=== PATIENT | male | born 1960 | race Asian ===

== ENCOUNTER → 2023-09-24 17:14 | Outpatient (REF) | payer OTHER, SELFPAY | LOC: MRI 3T 17:14 | PROVIDERS: ATTENDING PHYSICIAN Surgery | DX: C61 Malignant neoplasm of prostate (principal) | CPT/HCPCS: 72197; A9575 ==

== ENCOUNTER 2024-01-27 06:34 | Day surgery (SDC) | payer OTHER, SELFPAY ==
[2024-01-18 12:13] VITALS: BMI 30.1
[2024-01-27] VITALS (8 sets, daily range): BP systolic 104–123; BP diastolic 62–80; BMI 30.1
[2024-01-27] MEDS: TYLENOL 1000 MG PO (11:29)
[2024-01-27] MEDS: NORMOSOL-R/PLASMALYTE-A 1000 IV (11:30)
--- NOTE | 2024-01-27 12:28 | W.SUR.PREOP ---
Pre-Operative Surgical Note
-
I have examined this patient prior to the performance of the scheduled procedure.
The patient's condition is unchanged from the time of the current History and
Physical and the patient is able to undergo the scheduled procedure.
--- NOTE | 2024-01-27 12:28 | HP.FOC2 ---
Focused History & Physical
Chief Complaint
HPI:
Chief Complaint: Left inguinal hernia
HPI / Indication for Planned Procedure:
This is a 64-year-old male who presented to our clinic with a symptomatic left inguinal hernia and found to have right inguinal hernia on exam as well. Will plan for a robotic bilateral inguinal hernia repair with mesh.
Relevant Past Medical History: Negative
Relevant Social History: Negative
Relevant Family History: Negative
Relevant Past Surgical History: Negative
Review of Systems
Review of Pertinent Systems: All Systems Negative
Medication
See Medication form for detailed medications: Yes
Medication List (including Herbals & OTC):
amlodipine 5 mg tablet 5 mg PO DAILY 01/19/24
atorvastatin 20 mg tablet 20 mg PO HS 01/19/24
losartan 50 mg-hydrochlorothiazide 12.5 mg tablet 1 tab PO DAILY 01/19/24
tamsulosin 0.4 mg capsule 0.4 mg PO HS 01/19/24
Medications Reviewed: Yes
Allergies and Reactions
Patient has Allergies: No
Noted Allergies and Reactions:
Allergy/AdvReac Type Severity Reaction Status Date / Time
No Known Allergies Allergy Verified 01/27/24 11:14
Pertinent Physical Exam
All Other Systems: Negative
Head/Neck: Normal
Diagnosis / Assessment
This is a 64-year-old male with bilateral inguinal hernias
Plan / Procedure
Will plan for bilateral robotic inguinal hernia repair with mesh.
Anesthesia/Sedation to be done by Anesthesia Provider: Yes
--- NOTE | 2024-01-27 15:39 | W.IMMPOSTOP ---
Surgical Immed Post Op Note
-
Primary Surgeon: Bo Yu MD
Assisting Surgeon: None
Pre-op Diagnosis: Bilateral inguinal hernias
Post-op Diagnosis: Same
Procedure Performed: Robotic bilateral inguinal hernia repair with mesh
Anesthesia Type: General
Specimen / Cultures: None
Estimated Blood Loss: 11 cc
Complications: None
Operative Findings: Bilateral inguinal hernias. Bilateral indirect defects, left greater than right. Bilateral cord lipomas. Floor reinforced with large Bard 3D max mid weight mesh
--- NOTE | 2024-01-27 15:44 | OR.RPT ---
Operative Report
Operative Report
Patient Name: Savannah Chavis
: 1960
Date of Operation: 01/27/2024
Preoperative Diagnosis: Reducible Inguinal hernia, bilateral
Postoperative Diagnosis: Same
Procedure(s):
Robotic bilateral inguinal Hernia Repair with mesh, (CHRISTINE approach)
Surgeon(s):
Dr. Yu
Health Information Technologist(s):
CHRYSTAL Jerome
Anesthesia: General
Estimated Blood Loss: 11 cc
Urine Output: None
Drains/Lines/Implants: Large 3D Max Bard mid weight mesh x 2
Specimens: None
Indication for surgery: The patient has a history of groin pain and noted on exam to have bilateral inguinal Hernia(s). Following review of therapeutic options they have elected to undergo a minimally invasive repair.
Operative Findings:
Bilateral inguinal hernias. Bilateral indirect defects, left greater than right. Bilateral cord lipomas. Floor reinforced with large Bard 3D max mid weight mesh
Details of the operation:
The patient was brought to the Operating Room and placed in the supine position with the arms tucked. IV antibiotics were infused and Venodyne stockings placed. Following uneventful induction of general endotracheal anesthesia, an orogastric tube
were placed. The abdomen was prepped and draped in the usual sterile fashion. The abdomen was entered using a Veress technique which required 1 pass(es), pneumoperitoneum to 15 mmHg was obtained without difficulty. A 8mm trochar was passed through
the abdominal wall roughly 20 cm cephalad to the inguinal canal. We then confirmed that no inadvertent injury was made while passing the trocar or Veress needle. We then placed two additional 8 mm ports in the left upper and right upper quadrants.
We then docked the robot with a Prograsper in the left hand port and monopolar scissors in the right. Bilateral indirect hernias were readily visible, the left much greater than the right. Part of the sigmoid colon was attached to the peritoneum
on the left side. We then began by creating a flap at the level of the ASIS laterally working our way medially to the medial umbilical fold on the left side. Staying onto the peritoneum we were able to circumferentially dissect around the hernia
sac and and peel it off of the underlying spermatic cord and testicular vessels, taking care to preserve them. Medially we identified the midline pubis as well as Porfirio's ligament and ensured to dissect 2 cm below the pubic rim over the bladder.
After exposure of the entire myopectineal orifice we identified and reduced: A small sized indirect inguinal hernia, no direct inguinal hernia, no femoral hernia, and a medium cord lipoma which was removed. This was repeated on the right side with
similar findings though the indirect hernia was smaller as was the cord lipoma.
We then fixated two large 3D max meshes with a 2-0 Vicryl stitch at coopers medially and superior laterally. The flaps were then closed with running 2-0 barbed monocryl suture ensuring that the tail was cut flush with the medial fat pad so that no
barbs were exposed. During the closure of the flap an Angiocath was inserted and 20 cc of quarter percent Marcaine was instilled. The area in the flap cavity was then evacuated of air confirming that the meshes were flush and there were no folds.
No rents in the peritoneum were noted. All needles and instruments were then removed and the robot was undocked. The abdomen was then desufflated, and pneumoperitoneum evacuated. All skin sites were then closed with 4-0 Monocryl followed by
Dermabond. Counts were correct and overall, the patient tolerated the procedure well and was taken to the Recovery Room postoperatively in stable condition.
I was the attending physician and performed the procedure with assistance of the PA above. The assistance of Yomaira Gutiérrez was required due to the complexity of the procedure. During the procedure Yomaira assisted with passing instruments and needles as
well as closure of the wound. I was present for all portions of the case, excluding skin closure.
Bo Yu MD
== END 2024-01-27 17:33 | disposition home or self-care (01) ==
LOC: SDS 06:34
PROVIDERS: ATTENDING PHYSICIAN Surgery; FAMILY PHYSICIAN Hospitalist
DX: K40.20 Bilateral inguinal hernia, without obstruction or gangrene, not specified as recurrent (principal)
CPT/HCPCS: 49650; 36415; 93005; C1781

== ENCOUNTER → 2024-06-07 10:53 | Outpatient (REF) | payer OTHER, SELFPAY | LOC: RAD 10:53 | PROVIDERS: ATTENDING PHYSICIAN Internal Medicine | DX: M25.511 Pain in right shoulder (principal) | CPT/HCPCS: 76882 ==

== ENCOUNTER → 2024-12-06 06:47 | Outpatient (REF) | payer OTHER, SELFPAY | LOC: RAD 06:47 | PROVIDERS: ATTENDING PHYSICIAN Hospitalist | DX: K80.00 Calculus of gallbladder with acute cholecystitis without obstruction (principal); R10.11 Right upper quadrant pain | CPT/HCPCS: 76700 ==

== ENCOUNTER → 2024-12-06 09:55 | Outpatient (REF) | payer OTHER, SELFPAY | LOC: MRI 3T 09:55 | PROVIDERS: ATTENDING PHYSICIAN Surgery | DX: C61 Malignant neoplasm of prostate (principal) | CPT/HCPCS: 72197; A9575 ==

== ENCOUNTER 2025-05-09 06:21 | Day surgery (SDC) | payer OTHER, SELFPAY ==
[2025-05-04 11:54] LABS: Hematocrit 48.6 % (39.0-52.0); Hemoglobin 16.4 g/dL (13.0-18.0); Mean Corp Hgb Conc. 33.7 g/dL (33.0-37.0); Mean Corpuscular Volume 90.0 fL (80.0-94.0); Platelet Count 194 10^3/uL (130-400); Red Cell Dist. Width 13.5 % (11.5-14.5)
[2025-05-04 12:40] LABS: Blood Urea Nitrogen 24 mg/dl (9-20); Calcium 9.6 mg/dl (8.4-10.2); Carbon Dioxide 29 mmol/L (22-30); Chloride 103 mmol/L (98-107); Glucose 82 mg/dl (70-99); Potassium 4.6 mmol/L (3.5-5.1); Sodium 141 mmol/L (135-145); eGFR > 60.00
[2025-05-04 13:18] VITALS: BMI 28.9
[2025-05-09] VITALS (12 sets, daily range): BP systolic 25–145; BP diastolic 73–95; BMI 28.9
[2025-05-09] MEDS: NORMOSOL-R/PLASMALYTE-A 1000 IV ×2 (10:52→20:01)
--- NOTE | 2025-05-09 17:05 | W.SUR.POST ---
Surgical Immediate Post Op
Note
Pre Op Diagnosis: Prostate Cancer
Post Op Diagnosis: Prostate Cancer
Procedure Performed: Robotic radical prostatectomy, bladder neck reconstruction
Primary Surgeon: Ashley
Anesthesia: GETA
Estimated Blood Loss: 200 cc
Drains/Shunts: 18F bauman, 15F KRYSTYNA
Specimens/Cultures: bladder/prostate polyp for frozen; prostate + seminal vesicles for path
Complications: NA
Operative Findings: See op report
--- NOTE | 2025-05-09 17:09 | OR.RPT ---
Addendum entered and electronically signed by Armida Ramirez MD 05/14/25 19:07:
Date of operation: 05/09/2025
Original Note:
Operative Report
Operative Report
DATE OF OPERATION:
DICTATED BY: Armida Ramirez MD
PREOPERATIVE DIAGNOSIS: Clinically localized prostate cancer.
POSTOPERATIVE DIAGNOSIS: Clinically localized prostate cancer.
PROCEDURE:
1. Robotic assisted laparoscopic radical prostatectomy with bladder neck reconstruction
SURGEON: Armida Ramirez MD
TEMP RECRUITER:
1. CINDY Ho
2. CINDY Malhotra
ANESTHESIA: General with endotracheal tube.
COMPLICATIONS: None.
ESTIMATED BLOOD LOSS: 200 mL.
SPECIMENS:
1. Periprostatic fat.
2. Prostate/bladder lesion for frozen - (favored low grade papilloma)
3. Prostate and seminal vesicles.
DRAINS:
1. 18-Zimbabwean Anderson catheter with 10 cc sterile water in balloon to gravity drainage.
2. 15-Zimbabwean KRYSTYNA drain
INTRAOPERATIVE FINDINGS:
1. Complete radical resection of the prostate with no evidence of extraprostatic disease. However, the posterior dissection was challenging due to the large nature of the prostate gland as well as the bilateral seminal vesicles and vas deferens were
stuck to Denonviliers fascia.
2. Moderate adhesive disease was noted in the pelvis bilaterally near both inguinal canals and anteriorly as the bladder was adhesed to the anterior abdominal wall due to the patient's prior bilateral inguinal hernia repairs with mesh.
3. On division of the anterior bladder neck, we identified an approximately 1 cm lesion on the median lobe of the prostate at the level of the posterior bladder neck that was extending into the bladder. This was excised and sent for frozen.
3. Bilateral nerve sparing procedure was performed.
4. Bladder neck reconstruction was required and performing using an anterior tennis racquet technique, and a running urethrovesical anastomosis was performed which was noted to be watertight at the end of the procedure and after leak test.
INDICATIONS FOR PROCEDURE: The patient is a 65M with low risk on since 04/2018, GG1 prostate cancer in 2/12 cores on the right. MRI prostate showed 83 g prostate, no PIRADS lesions. Patient was counseled on continuing , however he had
worsening BPH symptoms with desire to stop taking medications, and also reported anxiety regarding the prostate cancer. He elected for radical prostatectomy after extensively reviewing the risks/benefits and alternatives.
DESCRIPTION OF PROCEDURE: The patient was identified by name and
medical record number in the preoperative holding area. The patient
was brought to the operating room and placed supine on the
operating room table. Preoperative antibiotics of ancef were
administered. The patient remained in supine position after
adequate and satisfactory anesthesia was induced. We ensured all
extremities and pressure points were sufficiently padded and
protected. These were secured to the operating room table. He was
placed in Trendelenburg position and confirmed the stability of
placement on the operating room. The patient returned back to
supine position. He was prepped, shaved, and draped in a standard
sterile fashion. Timeout was performed and all were in agreement
with the above noted procedure.
We placed a 16 [place]an Anderson per urethra with return of clear urine.
Pneumoperitoneum was induced by inserting a Veress needle into the
supraumbilical midline approximately 2 fingerbreadths above the
umbilicus. We insufflated the abdomen with CO2 to a pressure
of 15 mmHg. Next, an 8 mm robotic port was placed to
supraumbilical midline with a 30 degree robotic camera. Abdominal
cavity was inspected. Findings are noted above. The remainder of the ports were placed
under visualization. We placed two 8 mm robotic ports at the right
and left lateral rectus margin at the level of umbilicus. An
additional 8 mm robotic port was placed approximately one
handbreath lateral to the right lateral rectus port. We then placed a 12 mm
AirSeal port in the left upper quadrant. The patient was then
placed in Trendelenburg position. The robot was docked.
To begin the procedure, we robotically lysed adhesions bilaterally to gain access to the pelvis.
The urachus was then ligated and divided and the bladder was
dissected from the anterior abdominal wall laterally until the end
of endopelvic fascia and prostatic ligaments were encountered. We noted the bladder was stuck to the anterior abdominal wall at the area of mesh placement.
We then proceeded with defatting the anterior bladder neck and
prostate. The periprostatic fat was then removed and sent for
routine analysis. Then, using electrocautery we incised the
prostatovesical junction anteriorly until the catheter was
identified. The bladder was entered and anterior retraction was
placed on Anderson catheter. The posterior bladder neck was exposed
and the ureteral orifices were noted to be far away. We then excised a 1 cm papillary lesion emanating off the median lobe of the prostate into the bladder and sent this for frozen analysis. The base was then cauterized. The posterior
bladder neck was then incised and dissected away from the prostate. This was challenging due to the large size of the prostate gland.
We then encountered the vas deferens and seminal vesicles. We
dissected these off their insertions of the prostate. These planes were quite scarred and stuck. The vas deferens were ultimately divided and the seminal vesicles were dissected
free. Anterior traction with the fourth arm was placed on both vas
deferens and seminal vesicles. The posterior layer of
Denonvilliers' fascia was identified to enter the posterior plane
of the prostate and meticulously dissected all the way down to the apex. The
remaining detrusor muscle was incised bilaterally with electrocautery to expose the lateral prostatic vascular pedicles. The prostatic vascular pedicle on the left was ligated with Hem-o-ricardo clips and sharply divided. Bilateral nerve spare was
performed.
Once the pedicles were dissected free, we isolated the apex of the prostate. The prostate apex was ultimately developed and the dorsal venous complex was
identified and isolated. The DVC was then transected using electrocautery and cutting off the anterior portion of the prostate and the DVC was then oversewn with a 3-0 V-Loc 6 inch suture. Hemostasis was ultimately adequate at this point. The
urethra was transected and the prostate was free. The prostate was then placed in an EndoCatch bag along with bilateral pelvic lymph node packets. We then performed meticulous hemostasis.
A Leo stitch was then used to bring the posterior bladder neck to
the rectourethralis with a running 3-0 V-Loc suture. We then turned
our attention to the vesicourethral anastomosis. Using a double arm
3-0 V-Loc suture, we performed a running circumferential
urethrovesical anastomosis. Bladder neck reconstruction was required with a 3-0 V-Loc suture using an anterior tennis racquet technique. A new 18 Zimbabwean Anderson catheter was introduced without resistance and the catheter balloon was inflated to 10 mL
of sterile water. We then performed a leak test using 120 mL of water with no leak
identified. Hemostasis was then re-confirmed. Surgicel was placed in the pelvis. A 15 Zimbabwean drain was placed through the fourth arm and secured with 2-0 Nylon.
Next, the robot was undocked and all ports were removed. The specimen was brought out through the transverse muscle splitting incision at the site of the 12 mm AirSeal port. We then closed anterior fascia using bi-directional running 0 PDS suture.
The deep dermal layer was closed with interrupted 3-0 Vicryl suture and all skin incisions were closed with running subcuticular 4-0 Monocryl and Dermabond. Local anesthetic was applied to all incision sites.
All needle, instrument, and sponge counts were correct at the end of
the case. The patient tolerated the procedure well and was awoken
from general anesthesia. He was transferred to the postoperative
area in stable condition.

Armida Ramirez MD
[2025-05-09 17:34] LABS: Hematocrit 47.6 % (39.0-52.0); Hemoglobin 16.0 g/dL (13.0-18.0); Mean Corp Hgb Conc. 33.6 g/dL (33.0-37.0); Mean Corpuscular Volume 90.7 fL (80.0-94.0); Platelet Count 164 10^3/uL (130-400); Red Cell Dist. Width 13.3 % (11.5-14.5)
[2025-05-09 17:49] LABS: Blood Urea Nitrogen 23 mg/dl (9-20); Calcium 8.3 mg/dl (8.4-10.2); Carbon Dioxide 22 mmol/L (22-30); Chloride 105 mmol/L (98-107); Estimated Creatinine Clearance 68 ml/min; Glucose 162 mg/dl (70-99); Potassium 4.3 mmol/L (3.5-5.1); Sodium 136 mmol/L (135-145); eGFR > 60.00
[2025-05-09] MEDS: VALIUM INJECTION 5 MG IV (18:17)
--- NOTE | 2025-05-09 19:20 | PTCARENOTE ---
Received pt from PACU @[id number]. AAOx3. VSS. Pt's primary language is Mandarin Maori. Assessment completed with the help of language line and daughter at bedside. Pt oriented to room and call mas. Care ongoing.
[2025-05-09] MEDS: TYLENOL PO (20:01)
[2025-05-09] MEDS: TYLENOL 650 MG PO (20:02)
[2025-05-09] MEDS: LIPITOR 20 MG PO (21:43)
[2025-05-10] MEDS: TYLENOL 650 MG PO ×3 (00:30→08:40)
[2025-05-10 03:25] VITALS: BP 114/64
[2025-05-10] MEDS: HEPARIN 5000 UNITS SC (05:42)
[2025-05-10] MEDS: NORMOSOL-R/PLASMALYTE-A 1000 IV (05:43)
[2025-05-10 07:40] VITALS: BP 113/69
[2025-05-10] MEDS: COLACE 100 MG PO ×2 (08:49→12:09)
[2025-05-10] MEDS: COZAAR 50 MG PO (08:49)
[2025-05-10] MEDS: ORETIC 12.5 MG PO (08:49)
[2025-05-10] MEDS: NORVASC 5 MG PO (08:49)
[2025-05-10 09:30] LABS: Blood Urea Nitrogen 17 mg/dl (9-20); Calcium 8.0 mg/dl (8.4-10.2); Carbon Dioxide 28 mmol/L (22-30); Chloride 105 mmol/L (98-107); Estimated Creatinine Clearance 63 ml/min; Glucose 100 mg/dl (70-99); Potassium 4.2 mmol/L (3.5-5.1); Sodium 136 mmol/L (135-145); eGFR > 60.00
--- NOTE | 2025-05-10 09:45 | W.PN.URO.CBU ---
Today's Communication / Plan
-
- F/u AM CBC
- Regular diet
- DC IVF
- Pain control PRN
- Ambulate/OOB
- DVT PPx
- DC KRYSTYNA prior to discharge
- Anticipate dc home today
Assessment / Plan
-
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 Post-operatively doing well.
Plan:
- F/u AM CBC
- Regular diet
- DC IVF
- Pain control PRN
- Ambulate/OOB
- DVT PPx
- DC KRYSTYNA prior to discharge
- Anticipate dc home today
Diagnosis
-
Date of Service: May 10, 2025
-
Patient Diagnosis:
Post Op Day:
Subjective
-
No overnight issues. Comfortable this morning. Tolerating diet. No flatus. No ambulation yet
VSS. UOP adequate. KRYSTYNA Cr seroequivalent
Objective
-
Vital Signs
Temp Pulse Resp BP Pulse Ox
97.2 F 56 16 113/69 95
05/10/25 07:40 05/10/25 07:40 05/10/25 07:40 05/10/25 07:40 05/10/25 07:40
Intake and Output
05/09/25 05/10/25 05/11/25
06:59 06:59 06:59
Intake Total 1700 / 1700
Output Total 1200 / 1200
Balance 500 / 500
Intake:
Oral fluids 200 / 200
IV fluids (Total) 1500 / 1500
Normosal 400 / 400
Output:
Drain Output (Total) 75 / 75
Right Lower Abdomen Brian- 75 / 75
Al
Urine, Bauman 1125 / 1125
Laboratory Results
05/10/25 08:27
Physical Exam
-
General - well developed, well nourished, no acute distress
Chest - clear bilaterally
Abdomen - soft, non-tender, positive bowel sounds, no CVAT, no incisional pain or distention
Genitalia - normal, bauman yellow
Skin - warm & dry with no rash
Neuro - AOx3, no motor deficits
Extremities - no clubbing, no cyanosis, no edema
Incision - clean, dry
Dressing - clean, dry, intact
[2025-05-10 09:46] LABS: Hematocrit 41.5 % (39.0-52.0); Hemoglobin 13.9 g/dL (13.0-18.0); Mean Corp Hgb Conc. 33.5 g/dL (33.0-37.0); Mean Corpuscular Volume 89.2 fL (80.0-94.0); Platelet Count 171 10^3/uL (130-400); Red Cell Dist. Width 13.4 % (11.5-14.5)
--- NOTE | 2025-05-10 10:26 | CM ---
Chart reviewed and nurse outreach case manager met with patient and patient speaks Mandarin Guamanian, fleet manager is at bedside, nurse outreach case manager also reached out to patient's daughter, patient lives with his spouse in a 2 story home, patient is independent with adl's
and ambulation, no dme, home today, with visiting nurses, options reviewed and patient and daughter have selected [facility], referral sent to [facility].
Plan; Plan is to home with [facility].
--- NOTE | 2025-05-10 10:41 | VNURNOTE ---
Home Health Liaison met with patient at bedside to discuss [facility] nurse/therapy, visits, schedule and homebound status. Language line Mandarin Overhead Crane Inspector Jessica kaba. Patient is agreeable and understands that visits at home will be 2 x per
week to assess and teach medical and bauman management. Pt confirmed PCP Dr Yaniv Coombs. Patient is aware that [facility] will contact them for start of care within a few days after discharge from . Provided contact number for
[facility].
[facility] referral completed in Care Port.
--- NOTE | 2025-05-10 11:30 | W.PN.UPDATE ---
Update Note
Progress Note Update
Patient doing well. Tolerated lunch. No nausea/vomiting. Pain controlled.
KRYSTYNA output low and KRYSTYNA Cr seroequivalent. KRYSTYNA drain was removed intact by myself, site dressed with gauze.
Bauman draining to leg bag (full) > emptied. Patient comfortable
Needs overnight bag and leg bag teaching with family ( or daughter)
Discharge home today with [facility]N/homecare for bauman
[2025-05-10 11:45] VITALS: BP 112/62
[2025-05-10 12:22] VITALS: BP 112/62
[2025-05-10] MEDS: HEPARIN SC (14:50)
[2025-05-10] MEDS: NORMOSOL-R/PLASMALYTE-A IV (14:50)
[2025-05-10] MEDS: TYLENOL PO (14:50)
== END 2025-05-10 15:24 | disposition home or self-care (01) ==
LOC: SDS 06:21
PROVIDERS: ATTENDING PHYSICIAN Student in an Organized Health Care Education/Training Program
DX: C61 Malignant neoplasm of prostate (principal); D29.1 Benign neoplasm of prostate
CPT/HCPCS: 55866; 36415; 80048; 82570; 85027; 86850; 86900; 86901; 88305; 88307; 88309; 88331; 93005; C1729; C2617